=== PATIENT | male | born 1990 | race Two or more races ===

== ENCOUNTER 2020-12-17 15:32 | Emergency (ER) | payer SELFPAY ==
[~2020-12-17] VITALS: Ht 165.1 cm; Wt 75.0 kg
[2020-12-17 15:35] VITALS: BP 130/76
== END 2020-12-17 19:36 | disposition left against medical advice (07) ==
LOC: ER 15:32
DX: Z53.21 Procedure and treatment not carried out due to patient leaving prior to being seen by health care provider (principal)

== ENCOUNTER 2022-02-07 22:35 | Emergency (ER) | payer MEDICAID, OTHER ==
[~2022-02-07] VITALS: Ht 172.7 cm; Wt 71.0 kg
[2022-02-07 23:12] VITALS: BP 145/94
[2022-02-08 01:32] LABS: CLARITY URINE CLEAR (CLEAR); COLOR URINE YELLOW (YELLOW); KETONES URINE TRACE (NEGATIVE); LEUKOCYTE ESTERASE URINE NEGATIVE (NEGATIVE); NITRITE URINE NEGATIVE (NEGATIVE); OCCULT BLOOD URINE NEGATIVE (NEGATIVE); PH URINE 5.5 (4.5-8.0); PROTEIN URINE NEGATIVE (NEGATIVE); UROBILINOGEN URINE 0.2 E.U./dL (0.2-1.0)
== END 2022-02-08 01:10 | disposition left against medical advice (07) ==
LOC: ER 22:35
DX: Z53.21 Procedure and treatment not carried out due to patient leaving prior to being seen by health care provider (principal)
CPT/HCPCS: 81003; 99283